=== PATIENT | male | born 1985 | race Caucasian/White ===

== ENCOUNTER 2021-08-01 09:29 | Emergency (ER) | payer OTHER ==
[~2021-08-01] VITALS: Ht 190.5 cm; Wt 94.6 kg
[2021-08-01 09:46] VITALS: BP 122/76
--- NOTE | 2021-08-01 10:25 | NUR ---
assumed care of pt for D/C only. attempted to enter room to D/C patient, but pt not present in room. pt has left department prior to D/C
== END 2021-08-01 10:34 | disposition left against medical advice (07) ==
LOC: ED 09:59
DX: H66.002 Acute suppurative otitis media without spontaneous rupture of ear drum, left ear (principal)
CPT/HCPCS: 99283